=== PATIENT | male | born 1950 | race Caucasian/White ===

== ENCOUNTER 2017-07-16 01:58 | Inpatient (IN) | payer SELFPAY ==
[2017-07-16] MEDS ORDERED: ONDANSETRON 4 MG/2 ML VIAL IVP ONE (02:06)
[2017-07-16] MEDS ORDERED: PANTOPRAZOLE SODIUM 40 MG VIAL IVP ONE (02:07)
--- NOTE | 2017-07-16 02:12 | EDPHY ---
H & P HPI/ROS: HPI CHIEF COMPLAINT: Hematemesis vs. Cough, generalized weakness. HISTORY OF PRESENT ILLNESS: This patient is 67-year-old male, presents emergency room by ambulance after his called 911 because he has been possibly having hematemesis 1st coughing up black liquid. The was unsure if the patient is vomiting or coughing up black sputum. The patient presents to the emergency room he looks very ill, he is significantly jaundice, noted to be hypoxic 85% on room air, noted to have a distended abdomen consistent with significant ascites, and ill and frail- appearing. Patient very slow to respond. Very somnolent. His reports to me that this patient is been like this for approximately a week with increasing fatigue and generalized weakness. No reported fever per the . Additionally she tells me that he has metastatic colon cancer to his liver. He is undergoing treatment with his doctor in [place]. He has no local primary care doctor here or oncologist here. He undergoes chemo and radiation she states last 2 weeks ago in [place]. I did discuss goals of care with the . She would like her to be treated, diagnosed and made comfortable. At this time she does not want palliative care hospice at this time. He recently had a paracentesis a few days ago [facility]. History review of systems limited. It comes from his at bedside. Additionally reports to me that he is a full code. Past Medical History: Colon cancer metastatic to liver Past Surgical History: Recent paracentesis Social History: Denies daily use of drugs alcohol tobacco products. Family History: Noncontributory ROS REVIEW OF SYSTEMS: A comprehensive 10 point review of systems is otherwise negative aside from elements mentioned in the history of present illness. Exam Constitutional appears extremely ill, somnolent triage nursing summary reviewed , vital signs reviewed hypoxic, hypotensive, tachycardic, tachypneic Eyes icteric sclerae, EOMI, PERRLA. HENT normal inspection, atraumatic, moist mucus membranes, no epistaxis, neck supple/ no meningismus, no raccoon eyes. Respiratory tachypneic, breath sounds diminished bilaterally Cardiovascular tachycardic , regular rhythm, no murmur, no edema, distal pulses normal. Gastrointestinal soft, non-tender, no rebound, no guarding, normal bowel sounds, no distension, no pulsatile mass. Genitourinary no CVA tenderness. Musculoskeletal no midline vertebral tenderness, full range of motion, no calf swelling, no tenderness of extremities, no meningismus, good pulses, neurovascularly intact. Skin significant jaundice. pink, warm, & dry, no rash, skin atraumatic. Neurologic slow to respond, somnolent Psychiatric normal mood/affect. Heme/Lymph/Immune no lymphadenopathy. Differential Diagnosis: Includes but is not limited to in a particular order acute liver failure, acute on chronic liver failure, hyperammonemia, dehydration , sepsis, electrolyte disturbance, GI bleed Medical Decision Making: Plan for this patient as the wants aggressive measures taken, IV fluid resuscitation, IV establishment, full cardiac cath tech, obtain blood work including liver enzymes and ammonia level, check for infection with urinalysis and blood cultures, chest x-ray and KUB for bowel obstruction. Protonix bolus Protonix drip for GI bleed. IV Dilaudid for pain control as needed. Close monitoring. Re-evaluation: 0329AM: I did re-evaluate this patient at this time he is on his side. He is very comfortable after Dilaudid, however he appears extremely ill. Distended abdomen positive fluid wave. Patient is noted to be tachycardic in the 113. Current blood pressure 83/51 getting IV fluid bolus. Chest x-ray and KUB reviewed by myself. Abnormal bowel gas pattern on the KUB. And chest x-ray shows bilateral pleural effusions rather large on the left. 0336AM: Lactic acid elevated at 4.6. 0407AM: At this time I did re-evaluate the patient. Heart rate 115. Pulse ox 83%. This was on 2 L nasal cannula he has been upgraded to a oxygen mask at this time. At this time I did discuss blood results with the patient's and family at bedside. They understand his elevated creatinine. Extremely high bilirubin. The patient continues to be lethargic. This time given his grave illness the family is at bedside and I am discussing that if he gets worse he may need ventilator support/Intubation. They do not have any advanced directives and upon arrival he was a full code. They are deciding if they would like him intubated. 0418AM: Patient back from CT. He is on a non-rebreather at 15 L. I discussed at length with the at bedside and family which includes her son and daughter about given her is critical state at this time including profound hypoxia on a non-rebreather, lethargy, altered mental status and low blood pressure he will most likely need intubation. They are deciding if they want this. 0436AM: After extensive discussion with the family this includes at bedside and daughter and son. They decided that they would not want intubation. They are fine with comfort measures at this time and BiPAP. , Son, and daughter at bedside would like to make him comfortable. Comfort Measures. No Intubation or agressive measures. They do understand that he is in critical condition and is likely to pass away in the next few hours. They are comfortable BiPAP, no intubation, comfort measures. They are okay with him being admitted. CT reports of the chest abdomen pelvis called to me without contrast. CT scan of the chest shows large pericardial effusion, left lower lobe pneumonia. The CT scan of the abdomen pelvis without contrast shows bowel obstruction, ileus, pneumatosis, biliary pneumatosis, no free air, and large volume ascites large liver with Mets. I have asked the hospitalist service, and spoke with Dr. Villatoro to admit this patient. Final diagnosis multiorgan system failure including kidney failure, liver failure, hyperbilirubinemia, metastatic colon cancer, hypoxic respiratory failure, pneumonia, bowel obstruction Critical Care: Total Critical Care Time Spent Managing this Patient: 65Minutes. This time was spent Exclusively with this patient. This Care was exclusive of procedures. The Organ System/life at risk was multiorgan system failure This Patient was in Critical Condition because multiple organ system failure Source: Patient, Family, EMS Constitutional: Initial Vital Signs Temperature (C) 37 C 07/16/17 02:00 Heart Rate 115 H 07/16/17 02:00 Respiratory Rate 30 H 07/16/17 02:00 Blood Pressure 90/46 L 07/16/17 02:00 O2 Sat (%) 86 L 07/16/17 02:00 O2 Delivery Mode Non-Rebreather Mask O2 (L/minute) 2 Allergies/Adverse Reactions: No Known Allergies Allergy (Unverified 07/16/17 05:29) Home Medications: Medication Instructions Recorded NK [No Known Home Meds] 07/16/17 Medical Decision Making - Diagnostics Imaging Results: Imaging Impressions Abdomen/Pelvis CT 07/16/17 03:48 Impression: 1. Large pericardial effusion. 2. Small left pleural effusion. Atelectasis and/or pneumonia left lower lobe. Atelectasis left upper lobe. 3. Pulmonary nodule right upper lobe which could represent metastatic disease. CT Abdomen and Pelvis Without IV Contrast History: History of colon cancer with liver metastatic disease. Possible obstruction. Weakness. Comparisons: None. Technique: 1.5-mm helical images were obtained of the abdomen and pelvis from the level of the diaphragm through the symphysis pubis. Multiplanar reformation was performed. Radiation dose reduction technique was utilized. Findings Abdomen: Branching air is seen in the dome of the liver with a distribution and appearance suggesting portal venous air. Less likely would be a component of pneumobilia. Diffuse abnormal attenuation with heterogeneous nodular appearance is seen throughout the liver, compatible with diffuse metastatic disease. The liver is enlarged and nodular. Spleen is unremarkable. No evidence for hydronephrosis in either kidney. There appears to be air in the mesenteric vein centrally. There is pneumatosis in multiple loops of small bowel in the anterior midabdomen. Dilatation with air distention in multiple loops in the anterior abdomen. Large amount of ascites is seen laterally. Some of the fluid filled loops of small bowel are seen. Air is also seen in the IVC. Question of a few foci of air in the anterior abdominal wall and right pelvic veins. Pelvis: Degenerative change is seen in the lumbar spine. No evidence for bladder calculus. Significant free fluid is seen in the pelvis. Impression: 1. Evidence of air in the IVC and mesenteric veins and portal venous air in the liver. Pneumatosis in multiple loops of small bowel in the anterior abdomen with air distention which could be secondary to ileus, partial small bowel obstruction, and/or infarction. 2. Significant free fluid in the abdomen and pelvis. 3. Diffuse metastatic disease throughout the liver. Results discussed with Dr. Rashawn Lozada on 16 July [address] 07/16/17 03:48 Impression: 1. Large pericardial effusion. 2. Small left pleural effusion. Atelectasis and/or pneumonia left lower lobe. Atelectasis left upper lobe. 3. Pulmonary nodule right upper lobe which could represent metastatic disease. CT Abdomen and Pelvis Without IV Contrast History: History of colon cancer with liver metastatic disease. Possible obstruction. Weakness. Comparisons: None. Technique: 1.5-mm helical images were obtained of the abdomen and pelvis from the level of the diaphragm through the symphysis pubis. Multiplanar reformation was performed. Radiation dose reduction technique was utilized. Findings Abdomen: Branching air is seen in the dome of the liver with a distribution and appearance suggesting portal venous air. Less likely would be a component of pneumobilia. Diffuse abnormal attenuation with heterogeneous nodular appearance is seen throughout the liver, compatible with diffuse metastatic disease. The liver is enlarged and nodular. Spleen is unremarkable. No evidence for hydronephrosis in either kidney. There appears to be air in the mesenteric vein centrally. There is pneumatosis in multiple loops of small bowel in the anterior midabdomen. Dilatation with air distention in multiple loops in the anterior abdomen. Large amount of ascites is seen laterally. Some of the fluid filled loops of small bowel are seen. Air is also seen in the IVC. Question of a few foci of air in the anterior abdominal wall and right pelvic veins. Pelvis: Degenerative change is seen in the lumbar spine. No evidence for bladder calculus. Significant free fluid is seen in the pelvis. Impression: 1. Evidence of air in the IVC and mesenteric veins and portal venous air in the liver. Pneumatosis in multiple loops of small bowel in the anterior abdomen with air distention which could be secondary to ileus, partial small bowel obstruction, and/or infarction. 2. Significant free fluid in the abdomen and pelvis. 3. Diffuse metastatic disease throughout the liver. Results discussed with Dr. Rashawn Lozada on 16 July 2017 at 0451 hours. - Data Points Laboratory Results: Laboratory Results 07/16/17 03:00 07/16/17 03:00 Medications Given: Discontinued Medications Hydromorphone HCl (Dilaudid) 1 mg IVP EDNOW ONE Stop: 07/16/17 02:31 Last Admin: 07/16/17 02:57 Dose: 1 mg Sodium Chloride (Ns) 1,000 mls @ 0 mls/hr IV ONCE ONE PRN Reason: Wide Open Stop: 07/16/17 03:25 Last Admin: 07/16/17 03:30 Dose: 1,000 mls Pantoprazole Sodium 80 mg/ (Sodium Chloride) 100 mls @ 10 mls/hr IV EDNOW ONE Stop: 07/16/17 13:29 Last Admin: 07/16/17 07:23 Dose: Not Given Vancomycin/Sodium Chloride (Vancomycin 1 Gm (Premix)) 250 mls @ 250 mls/hr IV EDNOW ONE PRN Reason: Protocol Stop: 07/16/17 05:09 Last Admin: 07/16/17 07:44 Dose: Not Given Piperacillin/Tazobactam/Dextrose (Zosyn (Premix)) 100 mls @ 200 mls/hr IV EDNOW ONE PRN Reason: Protocol Stop: 07/16/17 04:39 Last Admin: 07/16/17 07:18 Dose: Not Given Sodium Chloride (Ns) 1,000 mls @ 0 mls/hr IV ONCE ONE PRN Reason: Wide Open Stop: 07/16/17 04:24 Last Admin: 07/16/17 07:22 Dose: Not Given Lorazepam (Ativan Injection) 0.5 - 2 mg IVP Q2HRS PRN PRN Reason: Anxiety, Unable to Take PO Stop: 01/12/18 05:28 Last Admin: 07/16/17 07:32 Dose: 0.5 mg Morphine Sulfate (Morphine) 2 mg IVP EDNOW ONE Stop: 07/16/17 05:00 Last Admin: 07/16/17 05:06 Dose: 2 mg Morphine Sulfate (Morphine) 2 - 4 mg IVP Q1HR PRN PRN Reason: Pain, Severe Unable to Take PO Stop: 07/26/17 05:28 Last Admin: 07/16/17 07:32 Dose: 2 mg Ondansetron HCl (Zofran) 4 mg IVP EDNOW ONE Stop: 07/16/17 02:07 Last Admin: 07/16/17 02:58 Dose: 4 mg Pantoprazole Sodium (Protonix) 40 mg IVP EDNOW ONE Stop: 07/16/17 02:08 Last Admin: 07/16/17 03:00 Dose: 40 mg Departure - Departure Disposition: [facility] Inpatient Acute Clinical Impression: Hyperammonemia, Metastatic colon cancer to liver, Hepatic encephalopathy GIB (gastrointestinal bleeding) Qualifiers: GI bleed type/associated pathology: melena Qualified Code(s): K92.1 - Melena Ascites Qualifiers: Ascites type: malignant Qualified Code(s): R18.0 - Malignant ascites Respiratory failure Qualifiers: Chronicity: acute Respiratory failure complication: hypoxia Qualified Code(s): J96.01 - Acute respiratory failure with hypoxia Condition: Critical
[2017-07-16] MEDS ORDERED: PANTOPRAZOLE SODIUM 80 MG in NS 100 ML IV SCH (02:15)
[2017-07-16] MEDS ORDERED: HYDROmorphONE/DILAUDID 1 MG/ML SYR ONE (02:30)
[2017-07-16] MEDS ORDERED: HYDROmorphONE/DILAUDID 1 MG/ML SYR IVP ONE (02:30)
[2017-07-16 03:22] LABS: % IMMATURE GRANULYOCYTES 0.9 % (0.0-1.1); ABSOLUTE IMMATURE GRANULOCYTES 0.07 10^3/uL (0.00-0.10); ABSOLUTE NRBC COUNT 0.06 10^3/uL (0-0.01); ADD DIFF? NO; ADD MORPH? YES; ADD SCAN? NO; ATYPICAL LYMPHOCYTE FLAG 40 (0-99); FRAGMENT RBC FLAG 20 (0-99); HEMATOCRIT 35.6 % (40.0-51.0); HEMOGLOBIN 11.6 g/dL (13.7-17.5); LEFT SHIFT FLG 20 (0-99); LIPEMIA HEMOLYSIS FLAG 80 (0-99); MEAN CELL HEMOGLOBIN 33.1 pg (27.9-34.1); MEAN CELL HEMOGLOBIN CONCENTR. 32.6 g/dL (32.4-36.7); MEAN CELL VOLUME 101.7 fL (81.5-99.8); MEAN PLATELET VOLUME 10.2 fL (8.7-11.7); NRBC-AUTO% 0.8 % (0.0-0.2); PLATELET CLUMPS FLAG 0 (0-99); PLATELET COUNT 278 10^3/uL (150-400)
[2017-07-16] MEDS ORDERED: NS 1,000 ML IV ONE ×2 (03:24→04:23)
[2017-07-16 03:26] LABS: RED CELL DISTRIBUTION WIDTH 26.3 % (11.5-15.2)
[2017-07-16] MEDS ORDERED: PANTOPRAZOLE SODIUM 80 MG in NS 100 ML IV ONE (03:30)
[2017-07-16 03:31] LABS: INR 1.98 (0.83-1.16); PROTIME(PATIENT) 22.6 SEC (12.0-15.0)
[2017-07-16 03:32] LABS: APTT 37.9 SEC (23.0-38.0)
[2017-07-16 03:34] LABS: ALANINE AMINOTRANSFERASE 67 IU/L (21-72); ALBUMIN 3.6 g/dL (3.5-5.0); ALKALINE PHOSPHATASE 1308 IU/L (38-126); ANION GAP 23 mEq/L (8-16); ASPARTATE AMINOTRANSFERASE 236 IU/L (17-59); BILIRUBIN-UNCONJUGATED 3.3 mg/dL (0.0-1.1); CALCIUM 10.1 mg/dL (8.5-10.4); CARBON DIOXIDE 17 mEq/l (22-31); CHLORIDE 100 mEq/L (97-110); CREATININE 2.8 mg/dL (0.7-1.3); GLOMERULAR FILTRATION RATE 23; GLUCOSE 100 mg/dL (70-100); POTASSIUM 3.6 mEq/L (3.5-5.2); SODIUM 140 mEq/L (134-144); TOTAL PROTEIN 6.9 g/dL (6.3-8.2)
[2017-07-16 03:43] LABS: BILIRUBIN,TOTAL 40.7 mg/dL (0.1-1.4); BILIRUBIN-CONJUGATED 37.4 mg/dL (0.0-0.5)
[2017-07-16 03:50] LABS: HYPOCHROMIA 1+; MACROCYTES 1+; PLATELET ESTIMATE ADEQUATE (ADEQ); POLYCHROMASIA 1+
[2017-07-16] MEDS ORDERED: PIPERACILLIN/TAZO 4.5 GM/DEX 100 ML IV ONE (04:10)
[2017-07-16] MEDS ORDERED: VANCOMYCIN HCL/NORMAL SALINE 250 ML IV ONE (04:10)
[2017-07-16] MEDS ORDERED: GLYCOPYRROLATE 0.2 MG/1 ML VIAL IVP/IM PRN (05:29)
[2017-07-16] MEDS ORDERED: LORazepam 2 MG/ML INJ IVP PRN (05:29)
--- NOTE | 2017-07-16 05:42 | PDGENHP ---
History and Physical - Chief Complaint Confusion - History of Present Illness 67 yo M with colon CA and extensive metastasis to the liver was brought to the ED by family in the setting of altered mental status, respiratory distress, and coffee ground emesis. Per conversation with family, patient recently underwent treatment in [place] with chemotherapy and radiation for metastatic colon cancer. He was admitted to [facility] earlier this week for recurrent, severe ascites. Then, over the course of the last 48 hours, the patient significantly deteriorated. Work-up in ED was notable for bilirubin of 40, INR of 2, MELD-Na of 38, ДМИТРИЙ, bowel obstruction, large jose alfredo-cardial effusion, and significant collapse of the left lung. Initially upon arrival family wanted aggressive interventions. As a result, several measures (imaging, antibiotics, NIPPV, etc) were undertaken. As the situation developed, family made the decision to change to comfort measures only. I had a lengthy conversation with patient's and children confirming these wishes. Patient's had recently arranged for a home hospice service to start coming to their house next week, and patient had expressed on several occasions that he didn't know how much longer he could fight his illness. All involved parties were in agreement to proceed with treatment of symptoms only moving forward. History Information - Allergies/Home Medication List Allergies/Adverse Reactions: No Known Allergies Allergy (Unverified 07/16/17 05:29) I have personally reviewed and updated: family history, medical history - Past Medical History cancer - Family History Positive for: cancer - Social History Smoking Status: Never smoked Review of Systems ROS: 10pt was reviewed & negative except for what was stated in HPI & below Physical Exam Temp Pulse Resp BP Pulse Ox 37 C 113 H 26 H 80/37 L 91 L 07/16/17 05:31 07/16/17 05:31 07/16/17 05:31 07/16/17 05:31 07/16/17 05:31 Constitutional: chronically ill appearing, uncomfortable Eyes: PERRL, icteric sclera Ears, Nose, Mouth, Throat: no oral mucosal ulcers, dry mucous membranes Cardiovascular: tachycardia, other (Quiet heart sounds) Respiratory: reduced air movement (L side), respiratory distress Gastrointestinal: ascites, distension Skin: warm, other (Severe jaundice) Neurologic: other (Somnolent) Psychiatric: encephalopathic, agitated Lab Data & Imaging Review 07/16/17 03:00 07/16/17 03:00 WBC 7.38 10^3/uL (3.80-9.50) 07/16/17 03:00 RBC 3.50 10^6/uL (4.40-6.38) L 07/16/17 03:00 Hgb 11.6 g/dL (13.7-17.5) L 07/16/17 03:00 Hct 35.6 % (40.0-51.0) L 07/16/17 03:00 MCV 101.7 fL (81.5-99.8) H 07/16/17 03:00 MCH 33.1 pg (27.9-34.1) 07/16/17 03:00 MCHC 32.6 g/dL (32.4-36.7) 07/16/17 03:00 RDW 26.3 % (11.5-15.2) H 07/16/17 03:00 Plt Count 278 10^3/uL (150-400) 07/16/17 03:00 MPV 10.2 fL (8.7-11.7) 07/16/17 03:00 Neut % (Auto) 83.0 % (39.3-74.2) H 07/16/17 03:00 Lymph % (Auto) 5.1 % (15.0-45.0) L 07/16/17 03:00 Stevens % (Auto) 10.0 % (4.5-13.0) 07/16/17 03:00 Eos % (Auto) 0.3 % (0.6-7.6) L 07/16/17 03:00 Baso % (Auto) 0.7 % (0.3-1.7) 07/16/17 03:00 Nucleat RBC Rel Count 0.8 % (0.0-0.2) H 07/16/17 03:00 Absolute Neuts (auto) 6.12 10^3/uL (1.70-6.50) 07/16/17 03:00 Absolute Lymphs (auto) 0.38 10^3/uL (1.00-3.00) L 07/16/17 03:00 Absolute Monos (auto) 0.74 10^3/uL (0.30-0.80) 07/16/17 03:00 Absolute Eos (auto) 0.02 10^3/uL (0.03-0.40) L 07/16/17 03:00 Absolute Basos (auto) 0.05 10^3/uL (0.02-0.10) 07/16/17 03:00 Absolute Nucleated RBC 0.06 10^3/uL (0-0.01) H 07/16/17 03:00 Immature Gran % 0.9 % (0.0-1.1) 07/16/17 03:00 Immature Gran # 0.07 10^3/uL (0.00-0.10) 07/16/17 03:00 Platelet Estimate ADEQUATE (ADEQ) 07/16/17 03:00 Polychromasia 1+ H 07/16/17 03:00 Hypochromasia 1+ H 07/16/17 03:00 Oval Macrocytes 1+ H 07/16/17 03:00 PT 22.6 SEC (12.0-15.0) H 07/16/17 03:00 INR 1.98 (0.83-1.16) H 07/16/17 03:00 APTT 37.9 SEC (23.0-38.0) 07/16/17 03:00 VBG Lactic Acid 4.7 mmol/L (0.7-2.1) H 07/16/17 04:35 Sodium 140 mEq/L (134-144) 07/16/17 03:00 Potassium 3.6 mEq/L (3.5-5.2) 07/16/17 03:00 Chloride 100 mEq/L (97-110) 07/16/17 03:00 Carbon Dioxide 17 mEq/l (22-31) L 07/16/17 03:00 Anion Gap 23 mEq/L (8-16) H 07/16/17 03:00 BUN 62 mg/dL (7-23) H 07/16/17 03:00 Creatinine 2.8 mg/dL (0.7-1.3) H 07/16/17 03:00 Estimated GFR 23 07/16/17 03:00 Glucose 100 mg/dL (70-100) 07/16/17 03:00 Calcium 10.1 mg/dL (8.5-10.4) 07/16/17 03:00 Total Bilirubin 40.7 mg/dL (0.1-1.4) H 07/16/17 03:00 Conjugated Bilirubin 37.4 mg/dL (0.0-0.5) H 07/16/17 03:00 Unconjugated Bilirubin 3.3 mg/dL (0.0-1.1) H 07/16/17 03:00 AST 236 IU/L (17-59) H 07/16/17 03:00 ALT 67 IU/L (21-72) 07/16/17 03:00 Alkaline Phosphatase 1308 IU/L (38-126) H 07/16/17 03:00 Ammonia 19.0 uMOL/L (9.0-30.0) 07/16/17 03:00 Total Protein 6.9 g/dL (6.3-8.2) 07/16/17 03:00 Albumin 3.6 g/dL (3.5-5.0) 07/16/17 03:00 Lipase 108 IU/L (23-300) 07/16/17 03:00 Patient ABO/Rh B POSITIVE 07/16/17 03:00 Antibody Screen NEGATIVE 07/16/17 03:00 Imaging Review: CT studies notable for bowel obstruction, large jose alfredo-cardial effusion, and collapse of left lung as well as extensive metastatic infiltration of the liver. Assessment & Plan Assessment: 67 yo M with metastatic colon cancer and extensive liver infiltration presents with liver failure complicated by bowel obstruction and likely pneumonia; family wishes to pursue comfort measures only. Plan: 1. Liver failure, bowel obstruction, pneumonia - Noting very poor prognosis ( MELD-Na 38 complicated by multiple acute conditions), family has decided to pursue comfort measures only. I personally discussed imaging findings with ED physician Dr. Stringer. I had a lengthy conversation with patient's and children confirming these wishes. Patient's had recently arranged for a home hospice service to start coming to their house next week, and patient had expressed on several occasions that he didn't know how much longer he could fight his illness. All involved parties were in agreement to proceed with treatment of symptoms only moving forward. - Comfort measures, DNR/DNI - Morphine, lorazepam, glycopyrrolate PRN - Will offer spiritual care services - Consider inpatient hospice but doubt patient will be stable enough for transfer Dispo: Admit to inpatient noting critical illness, need for aggressive symptom management, and unknown duration of decline.
[2017-07-16 07:11] VITALS: BP 75/35; PULSE 111; RESP 18; TEMP 99; O2SAT 91
--- NOTE | 2017-07-16 09:16 | HOSPPROG ---
Hospitalist Progress Note Assessment/Plan: 67 yo M with colon CA and extensive metastasis to the liver was brought to the ED by family in the setting of altered mental status, respiratory distress, and coffee ground emesis. Per conversation with family, patient recently underwent treatment in [place] with chemotherapy and radiation for metastatic colon cancer. He was admitted to [facility] earlier this week for recurrent, severe ascites. Then, over the course of the last 48 hours, the patient significantly deteriorated. Work-up in ED was notable for bilirubin of 40, INR of 2, MELD-Na of 38, ДМИТРИЙ, bowel obstruction, large jose alfredo-cardial effusion, and significant collapse of the left lung. Initially upon arrival family wanted aggressive interventions. As a result, several measures (imaging, antibiotics, NIPPV, etc) were undertaken. As the situation developed, family made the decision to change to comfort measures only. I had a lengthy conversation with patient's and children confirming these wishes. Patient's had recently arranged for a home hospice service to start coming to their house next week, and patient had expressed on several occasions that he didn't know how much longer he could fight his illness. All involved parties were in agreement to proceed with treatment of symptoms only moving forward. Objective: Vital Signs Temp Pulse Resp BP Pulse Ox 37.2 C 111 H 18 75/35 L 91 L 07/16/17 06:45 07/16/17 06:45 07/16/17 06:45 07/16/17 06:45 07/16/17 06:45 07/15/17 07/16/17 07/17/17 05:59 05:59 05:59 Intake Total 1000 Balance 1000 PT 22.6 SEC (12.0-15.0) H 07/16/17 03:00 INR 1.98 (0.83-1.16) H 07/16/17 03:00 ICD10 Worksheet Patient Problems: Problems Problem Status Onset Ascites Acute GIB (gastrointestinal bleeding) Acute Hepatic encephalopathy Acute Hyperammonemia Acute Metastatic colon cancer to liver Acute Respiratory failure Acute
--- NOTE | 2017-07-16 09:18 | HOSPPROG ---
Hospitalist Progress Note Assessment/Plan: Patient is a 67-year-old male with colon cancer and extensive metastasis to the liver. He was brought to the emergency room due to altered mental status, respiratory distress and coffee-ground emesis. The patient recently underwent treatment in [place] with chemotherapy and radiation. He was admitted earlier this week to [facility] for severe ascites. I reviewed his care with the admitting physician. The plan is for comfort measures. Work-up in ED was notable for bilirubin of 40, INR of 2, MELD-Na of 38, ДМИТРИЙ, bowel obstruction, large jose alfredo-cardial effusion. * liver failure with underlying pneumonia, small-bowel obstruction, ascites, diffuse liver Mets, renal failure Patient is on comfort care MELD score of 38 *plan: Went by to follow up with the patient and his family members. Reviewed his care. Questions were answered. Subjective: patient is nonresponsive Objective: Vital Signs Temp Pulse Resp BP Pulse Ox 37.2 C 111 H 18 75/35 L 91 L 07/16/17 06:45 07/16/17 06:45 07/16/17 06:45 07/16/17 06:45 07/16/17 06:45 07/15/17 07/16/17 07/17/17 05:59 05:59 05:59 Intake Total 1000 Balance 1000 PT 22.6 SEC (12.0-15.0) H 07/16/17 03:00 INR 1.98 (0.83-1.16) H 07/16/17 03:00 - Physical Exam Constitutional: chronically ill appearing Eyes: icteric sclera Cardiovascular: regular rate and rhythym Respiratory: respiratory distress, other (increase wob, lung sounds very diminished) Gastrointestinal: ascites, distension, other (no bowel sounds) Skin: other (jaundice) Neurologic: other (nonresponsive) ICD10 Worksheet Patient Problems: Problems Problem Status Onset Ascites Acute GIB (gastrointestinal bleeding) Acute Hepatic encephalopathy Acute Hyperammonemia Acute Metastatic colon cancer to liver Acute Respiratory failure Acute
--- NOTE | 2017-07-16 14:05 | GDS ---
[f rep st] DISCHARGE SUMMARY DISCHARGE DIAGNOSES: Liver failure, metastatic colon cancer, respiratory failure, kidney failure, left lower lobe pneumonia, bowel obstruction, ascites diffuse, liver metastasis HISTORY OF PRESENT ILLNESS: Briefly, the patient is a 67-year-old gentleman, who has a history of colon cancer and extensive metastasis to the liver. He was brought to the emergency room by the family due to altered mental status, respiratory distress, and coffee-ground emesis. The patient recently underwent treatment in [place] with chemotherapy and radiation for metastatic colon cancer. The brought her to [facility] because they did not have health insurance. Also of note, he was admitted to [facility] for recurrent severe ascites. Over the past 24 hours, he has had a significant decrease in his mental status. Initially, the family wanted aggressive intervention, but after evaluating all his studies, they had decided to discontinue care and place him on comfort care. The patient passed this afternoon at 11:55. He from multi organ system failure including kidney failure, liver failure, hypoxemic respiratory failure, pneumonia, bowel obstruction and metastatic colon cancer. Reviewed his care with his . All of her questions were answered. /[id number]/MODL MTDD
== END 2017-07-16 15:03 | disposition expired | DRG 435 ==
LOC: F3E 06:30
PROVIDERS: ADMIT Student in an Organized Health Care Education/Training Program; ATTEND Student in an Organized Health Care Education/Training Program
DX: C78.7 Secondary malignant neoplasm of liver and intrahepatic bile duct (principal); J96.91 Respiratory failure, unspecified with hypoxia; J18.8 Other pneumonia, unspecified organism; K72.90 Hepatic failure, unspecified without coma; Z85.038 Personal history of other malignant neoplasm of large intestine; Z51.5 Encounter for palliative care; N19 Unspecified kidney failure; Z66 Do not resuscitate
CPT/HCPCS: J1170; J2060; J2405; J2543